=== PATIENT | female | born 1970 | race Caucasian/White ===

== ENCOUNTER 2016-07-13 11:20 | Inpatient (IN) | payer BC ==
[~2016-07-13] VITALS: Ht 167.6 cm; Wt 93.0 kg
[2016-10-11] MEDS ORDERED: TRIAMTERENE-HC1 EACH PO (11:17)
[2016-10-11] MEDS ORDERED: XANAX0.25 MG PO (11:17)
[2016-10-12 09:56] VITALS: BP 118/71
[2016-10-12 16:39] VITALS: BP 149/81
[2016-10-12 16:52] LABS: MCHC 32.6 G/DL (30.0-36.0); MEAN PLAT.VOLUME 10.1 uM^3 (9.5-12.4); PLATELET COUNT 229 K/uL (156-360); RBC DIS.WIDTH-CV 14.2 % (11.8-14.6); RBC DIS.WIDTH-SD 46.2 % (39-53); RED BLOOD COUNT 4.27 M/uL (3.80-5.20); WHITE BLOOD COUNT 10.5 K/uL (4.1-10.2)
[2016-10-12 17:14] LABS: ANION GAP 7 MEQ/L (2-14); CHLORIDE 102 MEQ/L (99-109); GFR ESTIMATE (CALCULATED) > 59 mL/min/; GLUCOSE 124 mg/dL (70-99); POTASSIUM 4.6 MEQ/L (3.7-5.4); SAMPLE HEMOLYSIS CHECK 0; SAMPLE ICTERIC CHECK 0; SAMPLE LIPEMIA CHECK 0; SODIUM 138 MEQ/L (136-147); UREA NITROGEN (BUN) 13 mg/dL (9-23)
[2016-10-12 20:31] VITALS: BP 128/67
[2016-10-12 23:45] VITALS: BP 124/56
[2016-10-13 04:13] VITALS: BP 139/60
[2016-10-13 07:04] LABS: HEMATOCRIT 35.9 % (36.0-46.0); MCH 29.1 PG (29.0-34.0); MCHC 32.3 G/DL (30.0-36.0); MCV 90.2 FL (83-99); MEAN PLAT.VOLUME 10.4 uM^3 (9.5-12.4); PLATELET COUNT 237 K/uL (156-360); RBC DIS.WIDTH-CV 14.6 % (11.8-14.6); RBC DIS.WIDTH-SD 48.3 % (39-53); RED BLOOD COUNT 3.98 M/uL (3.80-5.20); WHITE BLOOD COUNT 10.2 K/uL (4.1-10.2)
[2016-10-13 07:28] LABS: ANION GAP 8 MEQ/L (2-14); CHLORIDE 104 MEQ/L (99-109); GFR ESTIMATE (CALCULATED) > 59 mL/min/; GLUCOSE 94 mg/dL (70-99); POTASSIUM 4.3 MEQ/L (3.7-5.4); SAMPLE HEMOLYSIS CHECK 0; SAMPLE ICTERIC CHECK 0; SAMPLE LIPEMIA CHECK 0; SODIUM 138 MEQ/L (136-147); UREA NITROGEN (BUN) 10 mg/dL (9-23)
[2016-10-13 08:33] VITALS: BP 139/60
[2016-10-13] MEDS ORDERED: TRAMADOL HCL50 MG PO (09:03)
== END 2016-10-13 10:18 | disposition home or self-care (01) | DRG 743 ==
LOC: 2SOUTH 11:20 → 2EAST 10-12 14:33
PROVIDERS: Obstetrics & Gynecology Gynecologic Oncology
DX: D25.9 Leiomyoma of uterus, unspecified (principal); Z68.35 Body mass index [BMI] 35.0-35.9, adult; N84.0 Polyp of corpus uteri; N83.8 Other noninflammatory disorders of ovary, fallopian tube and broad ligament; E66.9 Obesity, unspecified; F17.210 Nicotine dependence, cigarettes, uncomplicated; Z90.13 Acquired absence of bilateral breasts and nipples; Z85.3 Personal history of malignant neoplasm of breast
CPT/HCPCS: 36415; 80048; 85027; 86850; 86900; 86901; 86920; 88307; J0131; J1100; J1170; J1650; J1885; J2250; J2270; J2405; J2550; J2710; J3010; S0030